=== PATIENT | female | born 1980 | race American Indian/Alaskan Native ===

== ENCOUNTER 2020-11-05 11:40 | Emergency (ER) | payer OTHER ==
[2020-11-05 11:50] VITALS: BP 129/71
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
== END 2020-11-05 15:30 | disposition home or self-care (01) ==
LOC: ED 11:40
DX: S70.02XA Contusion of left hip, initial encounter (principal); S80.02XA Contusion of left knee, initial encounter; Z79.899 Other long term (current) drug therapy; V49.49XA Driver injured in collision with other motor vehicles in traffic accident, initial encounter; Y92.410 Unspecified street and highway as the place of occurrence of the external cause; Y93.89 Activity, other specified; Y99.8 Other external cause status
CPT/HCPCS: 99283